=== PATIENT | male | born 1970 | race Caucasian/White ===

== ENCOUNTER 2016-10-20 20:36 | Inpatient (IN) | payer OTHER ==
--- NOTE | ~2016-10-20 | CR72 ---
[facility] A Service of [facility] RADIOLOGY TEXT RESULTS PATIENT: DIONI MANUEL LOCATION: [address] : 71 UNIT #: [id number] AGE: [address]: Bee Wood MD SEX: M ORDER DR: [id number] [facility] [address] [facility]. [place], [place] [address] [id number] I MR#: [id number] Acc #: [id number] NAME: MENDEZ PONCE : 07/04/1948 SEX: M STUDY DATE/TIME: 10/21/2016 4:55 UNIT: [facility] ROOM: [facility] STUDY DESCRIPTION: CR Chest Single View Portable Attending Physician: Anya Quintero M.D. Ordering Physician: Katia Todd M.D. Primary Care Physician: Primary Care Physician No MEDICAL IMAGING REPORT This report is preliminary unless electronic signature is present EXAM Portable chest INDICATION Follow up endotracheal tube. FINDINGS Today's portable view of the chest is compared with yesterday's study. The endotracheal tube is in good position. The lungs are clear and the heart size is normal. Dictated by... Wenceslao Paige M.D. THIS IS AN ELECTRONICALLY VERIFIED REPORT Wenceslao Paige M.D. at 10/21/2016 2:15 PM ERA/kd TD: 10/21/2016 06:22 JOB #: [id number] MEDICAL IMAGING REPORT Page 1 of 1 COPY
--- NOTE | ~2016-10-20 | EKG ---
PATIENT: MENDZE PONCE UNIT #: [id number] Ventricular Rate: 127 BPM Atrial Rate: 98 BPM QRS Duration: 104 ms Q-T Interval: 350 ms QTC Calculation(Bezet): 508 ms Calculated R [place]: 91 degrees Calculated T [place]: 26 degrees Diagnosis Line: Atrial fibrillation with rapid ventricular Diagnosis Line: response with premature ventricular or aberrantly Diagnosis Line: conducted complexes Diagnosis Line: Rightward axis Diagnosis Line: Marked ST abnormality, possible inferior Diagnosis Line: subendocardial injury Diagnosis Line: Abnormal ECG Diagnosis Line: When compared with ECG of 20-OCT-2016 16:53, Diagnosis Line: (unconfirmed) Diagnosis Line: ST now depressed in Inferior leads Diagnosis Line: ST now depressed in Lateral leads Diagnosis Line: Confirmed by JUVE RAMOS MD ([id number]) on 10/21/2016 Diagnosis Line: 5:05:43 AM INTERPRETING MD: RACHEL KOVACS
--- NOTE | ~2016-10-20 | HP ---
Unit #: [id number] #: [id number] Patient: DIONI MANUEL [id number] [address] [place], [place] [address] [id number] MR#: [id number] NAME: MENDEZ PONCE ROOM: Age: 68 Sex: M Admission Date: 10/20/2016 : 07/04/1948 Attending Physician: Yovani Horowitz M.D. Primary Care Physician: No Primary Care Physician HISTORY AND PHYSICAL CHIEF COMPLAINT Overdose. HISTORY OF PRESENT ILLNESS The patient is a -gpbk-axu male with a history of heroin abuse brought to the emergency room with the drug overdose. The patient is status post intubation. The patient was brought in by the EMS as friend called the EMS for the transfer. The patient was more dusky from the chest above and was in respiratory distress. The patient received the multiple doses of the Narcan in the emergency room with no response and the patient has been intubated for the drug overdose. No further history is available. PAST MEDICAL HISTORY Heroin abuser. PAST SURGICAL HISTORY Unavailable. ALLERGIES No known drug allergies. SOCIAL HISTORY Unable to obtain. REVIEW OF SYMPTOMS Unable to obtain. FAMILY HISTORY Unable to obtain. PHYSICAL EXAMINATION GENERAL APPEARANCE: On examination the patient is lying on a bed status post intubation and sedation. VITAL SIGNS: Temperature 97.1, pulse 45, respiratory rate 14, blood pressure 159/89, sating 100% at room air. HEENT: Head atraumatic, normocephalic. Pupils equal, round and reacting to light and accommodation. Extraocular movements are intact. Dry mucous membranes NECK: Supple. LUNGS: Decreased air entry. Coarse breath sounds. HEART: Regular rate and rhythm. ABDOMEN: Soft, positive bowel sounds. Unit #: [id number] #: [id number] Patient: DIONI MANUEL EXTREMITIES: Patient has laceration brower on the lower extremities. NEUROLOGIC: Status post sedation and intubation. DIAGNOSTIC STUDIES LABORATORY DATA: pH 7.33, pCO2 of 45, PaO2 of 334, bicarb 24.3, oxygen saturation 97.8. Glucose 134, BUN 12, creatinine 0.9, sodium 137, potassium 4.3, chloride 101, bicarb 24, calcium 8.6, magnesium 2, total protein 8.1, AST 36, ALT 25, alkaline phosphatase 140, lactic acid 1.5, acetaminophen less than 10, salicylate less than 4, alcohol less than 5, INR is 1, WBC 7.8, hemoglobin 15, hematocrit 44.9 and platelets 192, neutrophils 86.9. Urine tox is positive for cocaine and marijuana. UA shows 100 glucose. IMAGING: Chest x-ray shows lungs appear clear with no definite focal infiltrate seen. CT of the head showed no clearly acute intracranial process. No evidence of acute intracranial hemorrhage. Mild sinus disease. CARDIOVASCULAR: Patient had an EKG that showed atrial fibrillation with a rapid ventricular response with premature PVCs or aberrantly conducted complexes. ASSESSMENT 1. Acute respiratory failure. 2. Drug overdose. 3. Atrial fibrillation. PLAN 1. Plan to admit the patient to inpatient with the telemetry. 2. Critical care consult with Dr. Tello. 3. Continue sedation with the Diprivan. 4. Repeat the ABG and wean the vent per protocol. 5. I will have a Cardiology consult for the new onset afib. 6. Repeat the labs. Further recommendations will follow. Dictated by Juve Wallace TD: 10/20/2016 20:33 JOB #: [id number] Unit #: [id number] #: [id number] Patient: DOINI MANUEL HISTORY AND PHYSICAL Page 1 of 1 X X HISTORY AND PHYSICAL
--- NOTE | ~2016-10-20 | CO ---
Unit #: [id number] #: [id number] Patient: DIONI MANUEL [id number] [facility] [address] [facility]. [place], [place] [address] [id number] I MR#: [id number] NAME: MENDEZ PONCE ROOM: CICCU3 Age: 68 Sex: M Admission Date: 10/20/2016 : 07/04/1948 Attending Physician: Bee Wood M.D. Primary Care Physician: No Primary Care Physician Consultation Date: 10/21/2016 CONSULTATION REPORT REASON FOR CONSULT Atrial fibrillation. Please note, this is an alias. The patient's age and date are actually unknown. HISTORY OF PRESENT ILLNESS Apparently, the patient was found down in the middle of the street. A friend called EMS, brought him into the emergency room at [facility] for evaluation. He was noted to have received some doses of Narcan with minimal response and developed respiratory distress requiring intubation. It was believed he had a drug overdose. Urine drug tox was positive for cocaine and marijuana and according to the history, the patient has a previous history of heroin use in the past. We were asked to see due to atrial fibrillation. Initial EKG showed atrial fibrillation with RVR, rate of 127 beats per minute, rightward axis. ST abnormality could be rate related. Next, the patient spontaneously converted out of this rhythm and has been maintaining normal sinus rhythm with no further episodes of atrial fibrillation. At present, there is no family present at bedside. All information was gathered from the chart, the nursing staff, and the prior records. He is currently intubated and sedated on the ventilator. PAST MEDICAL HISTORY Unknown. PAST SURGICAL HISTORY Unknown. ALLERGIES No known drug allergies. SOCIAL HISTORY Unknown. REVIEW OF SYSTEMS Unable to obtain, patient is intubated and sedated. FAMILY HISTORY Unable to obtain. PHYSICAL EXAMINATION GENERAL APPEARANCE: This is a male who is currently intubated and sedated on the ventilator in room 18, ICU. Unit #: [id number] #: [id number] Patient: DIONI MANUEL VITAL SIGNS: Temperature currently 99.4, respiratory rate 19-20, pulse 77, blood pressure 97/56 to 113/71. HEENT: Head is atraumatic, normocephalic. Pupils are equal and round. Mucous membranes are moist. NECK: Trachea is midline. ET tube is present. No lymphadenopathy or thyromegaly. No JVD. No carotid bruits. CARDIOVASCULAR: S1, S2. Regular rate and rhythm. No murmur, gallop, or rub. LUNGS: Clear to auscultation throughout. No adventitious breath sounds. No rales. No rhonchi. No wheezes. ABDOMEN: Soft, nontender, nondistended. Bowel sounds are present. EXTREMITIES: Pulses are palpable. No clubbing, cyanosis, or edema. He has multiple tattoos noted all over his skin. NEUROLOGIC: Withdraws to pain. DIAGNOSTIC STUDIES LABORATORY: Glucose 123, BUN 11, creatinine 0.8, sodium 140, potassium 3.5, chloride 107, CO2 of 27, magnesium 2. Alkaline phosphatase 114. Troponins have been less than 0.03. Total cholesterol 154, triglycerides 92, LDL 80, HDL 56. TSH is 0.5. Alcohol level is less than 5. Coags are within normal limits. Hematology: Hemoglobin 13.9, hematocrit 42.1, WBC 9.1, platelet count 187,000. Chem tox was positive for cocaine and marijuana. Blood cultures are currently pending. IMAGING: Chest x-ray shows ET tube is present. Lungs are clear. Heart size is normal. He also had a CT of the head which showed no acute intracranial hemorrhage, mild sinus disease. Postop changes of the right mandible. He had a CT of the cervical spine which showed no acute cervical spine abnormality. No fracture. Degenerative changes were noted. CARDIOVASCULAR: Initial EKG showed atrial fibrillation with RVR, rate of 127 beats per minute, rightward axis. ST abnormality was noted, could be rate related. Currently, he is in sinus rhythm on telemetry and has maintained that all day according to the nursing staff. IMPRESSION 1. Found down in the middle of the street unresponsive. No cardiopulmonary resuscitation indicated. Found to be in acute respiratory distress, suspected drug overdose. 2. Atrial fibrillation: Transient episodes spontaneously converted to normal sinus rhythm. 3. History of heroin abuse. 4. Urine drug tox is positive for cocaine and marijuana. PLAN The patient is currently intubated and sedated on the ventilator secondary to acute respiratory distress, most likely secondary to overdose. We were consulted to see secondary to atrial fibrillation which was transient in nature. The patient spontaneously converted now to normal sinus rhythm. Will check cardiac enzymes and troponins q.6 hours and follow EKGs. Troponins should be called if greater than 0.5. Will check TSH, fasting lipid panel, and a 2D echocardiogram to look for any cardiomyopathy secondary to the patient's drug use. No further cardiac workup is indicated at this time. Unit #: [id number] #: [id number] Patient: DIONI MANUEL We will continue to follow alongside you. We appreciate the consult. Dictated by... Rosalinda Oviedo A.P.R.N. for Juve Yang/bartolo TD: 10/21/2016 15:44 JOB #: [id number] CONSULTATION REPORT Page 1 of 1 X Rosalinda Oviedo PROFESSOR OF BUSINESS X CONSULTATION REPORT
--- NOTE | ~2016-10-20 | EKG ---
PATIENT: MENDEZ PONCE UNIT #: [id number] Ventricular Rate: 88 BPM Atrial Rate: 59 BPM QRS Duration: 104 ms Q-T Interval: 388 ms QTC Calculation(Bezet): 469 ms Calculated R [place]: 86 degrees Calculated T [place]: 60 degrees Diagnosis Line: Atrial fibrillation with premature ventricular or Diagnosis Line: aberrantly conducted complexes Diagnosis Line: Abnormal ECG Diagnosis Line: No previous ECGs available Diagnosis Line: Confirmed by JUVE RAMOS MD ([id number]) on 10/21/2016 Diagnosis Line: 5:03:57 AM INTERPRETING MD: RACHEL KOVACS
--- NOTE | ~2016-10-20 | CT52 ---
[facility] A Service of [facility] RADIOLOGY TEXT RESULTS PATIENT: DIONI MANUEL LOCATION: CICCU3 CICCU318 : 72 UNIT #: [id number] AGE: [address]: Bee Wood MD SEX: M ORDER DR: [id number] [facility] [address] [facility]. [place], [place] [address] [id number] P MR#: [id number] Acc #: [id number] NAME: MENDEZ PONCE : 07/04/1948 SEX: M STUDY DATE/TIME: 10/20/2016 18:00 UNIT: [facility] ROOM: STUDY DESCRIPTION: CT Cervical Spine Wo Cont Attending Physician: Yovani Horowitz M.D. Ordering Physician: Yovani Horowitz M.D. MEDICAL IMAGING REPORT This report is preliminary unless electronic signature is present EXAM CT of the cervical spine without contrast INDICATIONS Found unresponsive today. Overdose, possible trauma. TECHNIQUE CT of the cervical spine was performed without contrast. Coronal and sagittal reformatted images were obtained. This CT exam was performed with one or more of the following radiation dose reduction techniques: automatic exposure control, adjustment of mA and/or kV according to patient size, and iterative reconstruction. COMPARISON No comparisons FINDINGS There is degenerative grade 1 retrolisthesis of C5 on C6. There is no evidence of acute fracture or traumatic subluxation. There is multilevel facet hypertrophy. There are very mild central canal narrowing at C5-C6. At C4-5 there is moderate neural foraminal narrowing on the left. There is mild to moderate neural foraminal narrowing bilaterally C5-C6. There is an endotracheal tube in place. IMPRESSION Degenerative changes as described. There is no acute cervical spine abnormality. No fracture. Dictated by... Ozzy Moss M.D. THIS IS AN ELECTRONICALLY VERIFIED REPORT Ozzy Moss M.D. at 10/21/2016 7:55 AM [facility] A Service [facility] RADIOLOGY TEXT RESULTS PATIENT: DIONI MANUEL LOCATION: CICCU3 CICCU318 : 72 UNIT #: [id number] AGE: [address]: Bee Wood MD SEX: M ORDER DR: MILLIE/patrick TD: 10/20/2016 18:55 JOB #: [id number] MEDICAL IMAGING REPORT Page 1 of 1 COPY
--- NOTE | ~2016-10-20 | CR72 ---
[facility] A Service of [facility] RADIOLOGY TEXT RESULTS PATIENT: DIONI MANUEL LOCATION: CICCU3 CICCU3-18 : 72 UNIT #: [id number] AGE: [address]: Bee Wood MD SEX: M ORDER DR: [id number] [facility] [address] [facility]. [place], [place] [address] [id number] P MR#: [id number] Acc #: [id number] NAME: MENDEZ PONCE : 07/04/1948 SEX: M STUDY DATE/TIME: 10/20/2016 16:48 UNIT: [facility] ROOM: STUDY DESCRIPTION: CR Chest Single View Portable Attending Physician: Yovani Horowitz M.D. Ordering Physician: Yovani Horowitz M.D. MEDICAL IMAGING REPORT This report is preliminary unless electronic signature is present EXAM Portable chest 10/20/2016 INDICATIONS Intubation. Patient had an overdose today and is unresponsive. FINDINGS Since the prior examination from earlier today and endotracheal tube has been placed which terminates at about the level of the thoracic inlet. The heart size is within normal limits. Lungs appear clear with no definite focal infiltrates seen. Please note both costophrenic angles are excluded from the radiograph. No obvious pneumothorax or pleural effusion is seen. Dictated by... Mary Quinteros M.D. THIS IS AN ELECTRONICALLY VERIFIED REPORT Mary Quinteros M.D. at 10/21/2016 10:36 AM ISAIAS/jessi TD: 10/20/2016 18:20 JOB #: [id number] MEDICAL IMAGING REPORT Page 1 of 1 COPY
--- NOTE | ~2016-10-20 | CT71 ---
[facility] A Service [facility] RADIOLOGY TEXT RESULTS PATIENT: DIONI MANUEL LOCATION: CICCU3 CICCU3-18 : 72 UNIT #: [id number] AGE: [address]: Bee Wood MD SEX: M ORDER DR: [id number] [facility] [address] [facility]. [place], [place] [address] [id number] P MR#: [id number] Acc #: [id number] NAME: MENDEZ PONCE : 07/04/1948 SEX: M STUDY DATE/TIME: 10/20/2016 17:39 UNIT: [facility] ROOM: STUDY DESCRIPTION: CT Head Wo Contrast Attending Physician: Yovani Horowitz M.D. Ordering Physician: Yovani Horowitz M.D. MEDICAL IMAGING REPORT This report is preliminary unless electronic signature is present EXAM Head CT no contrast 10/20/2016 INDICATIONS 68-year-old male, unresponsive, overdose, unknown trauma today. Ventilator patient. Heroin user. TECHNIQUE Noncontrast CT the brain was performed. This CT exam was performed with one or more of the following radiation dose reduction techniques: automatic exposure control, adjustment of mA and/or kV according to patient size, and iterative reconstruction. COMPARISON We have no comparison studies. FINDINGS CT BRAIN: Sulci and ventricles within normal limits. No midline shift. No evidence of acute intracranial hemorrhage. There is no mass, mass effect or edema to suggest acute infarct. No extraaxial fluid collections are present. Globes are intact. Bones are intact. There is evidence of prior surgery to the right mandible. Mild sinus disease. IMPRESSION 1. No clearly acute intracranial process. No evidence of acute intracranial hemorrhage. 2. Mild sinus disease. 3. Postop changes right mandible. Dictated by... Alvin Sutton M.D. [facility] A Service [facility] RADIOLOGY TEXT RESULTS PATIENT: DIONI MANUEL LOCATION: CICCU3 CICCU3-18 : 72 UNIT #: [id number] AGE: [address]: Bee Wood MD SEX: M ORDER DR: THIS IS AN ELECTRONICALLY VERIFIED REPORT Alvin Sutton M.D. at 10/20/2016 7:56 PM Apol[place] TD: 10/20/2016 19:08 JOB #: [id number] MEDICAL IMAGING REPORT Page 1 of 1 COPY
--- NOTE | ~2016-10-20 | CO ---
Unit #: [id number] #: [id number] Patient: DIONI MANUEL [id number] [address] [place], [place] [address] [id number] I MR#: [id number] NAME: MENDEZ PONCE ROOM: [facility] Age: 68 Sex: M Admission Date: 10/20/2016 : 07/04/1948 Attending Physician: Bee Wood M.D. Primary Care Physician: No Primary Care Physician CONSULTATION REPORT CHIEF COMPLAINT Drug overdose. REASON FOR CONSULTATION Respiratory failure. HISTORY OF PRESENT ILLNESS This is a 68-year-old male with a past medical history of drug abuse. He presents with complaint of altered mental status. He was found to be in respiratory failure. He received multiple doses of Narcan. He did not respond. He was intubated by the emergency room physician. I am seeing him at the bedside. Currently he is intubated and sedated. PAST MEDICAL HISTORY Heroin abuse. PAST SURGICAL HISTORY Unobtainable. SOCIAL HISTORY Drug use from the records. ALLERGIES No known drug allergies. REVIEW OF SYSTEMS Unobtainable. PHYSICAL EXAMINATION VITALS: Temperature 98, pulse 87, respiratory rate 12, blood pressure 130/70. LUNGS: Bilateral air entry. Bilateral mild rhonchi. HEART: S1 plus S2. ABDOMEN: Nontender, soft, bowel sounds positive. EXTREMITIES: No edema. SKIN: No rashes. No ulcers. LYMPH: No lymphadenopathy. NEUROLOGIC: Sedated. DIAGNOSTIC STUDIES IMAGING: Reviewed. LABORATORY: Have been reviewed. Unit #: [id number] #: [id number] Patient: DIONI MANUEL ASSESSMENT 1. Acute respiratory failure. 2. Drug overdose. 3. Atrial fibrillation. PLAN Continue ventilator support. Wean as tolerated. GI and DVT prophylaxis. Cardiology evaluation. Two-dimensional echo. The patient will be closely monitored. Please see orders for detailed plan. I would like to thank you for your kind consideration to involve me in taking care of this patient. Total critical care time is 35 minutes in direct critical care of this patient. Dictated by... Juve Garcia TD: 10/21/2016 11:07 JOB #: [id number] CONSULTATION REPORT Page 1 of 1 X Dell Tello MD CONSULTATION REPORT
[2016-10-20 17:16] LABS: URINE APPEARANCE CLEAR; URINE BILIRUBIN NEG (NEG); URINE BLOOD TRACE (NEG); URINE COLOR YELLOW; URINE GLUCOSE 100 MG/DL (NEG); URINE KETONE 1+ (NEG); URINE LEUKOCYTE ESTERASE NEG (NEG); URINE NITRATE NEG (NEG); URINE PROTEIN NEG (NEG); URINE SPECIFIC GRAVITY 1.009 (1.003-1.035); URINE UROBILINOGEN 0.2 MG/DL (NEG)
[2016-10-20 17:18] LABS: URBCS1 AUWI 0-2 /[HPF] (0-2); URINE BACTERIA AUWI NEG (NEGATIVE); URINE SQUAMOUS EPITHELIAL CELL NONE SEEN /[HPF]; UWBCS1 AUWI 0-2 (0-5)
[2016-10-20 17:23] LABS: CULTURE INDICATED? NO
[2016-10-20 17:24] LABS: BASOPHIL% 0.5 % (0-2.5); EOSINOPHIL% 0.1 % (0.0-7.0); HEMATOCRIT 44.9 % (38.0-50.0); LYMPHOCYTE# 0.6 X10e3 (1.0-3.5); LYMPHOCYTE% 7.7 % (17.0-45.0); MEAN CELL VOLUME 102.3 FL (83-96); MEAN CORPUSCULAR HEMOGLOBIN 34.2 PG (28-34); MEAN CORPUSCULAR HGB CONC 33.4 g/dL (30-36); MEAN PLATELET VOLUME 7.4 FL (6.5-11.5); MONOCYTE# 0.4 X10e3 (0-1.0); MONOCYTE% 4.8 % (3.0-12.0); NEUTROPHIL# 6.8 X10e3 (1.5-7.1); NEUTROPHIL% 86.9 % (40-75); PLATELET COUNT 192 X10e3 (140-420); RED BLOOD COUNT 4.39 X10e (3.90-5.60); WHITE BLOOD COUNT 7.8 X10e3 (4.0-10.5)
[2016-10-20 17:25] LABS: ARTERIAL BLD GAS O2 SATURATION 97.8 % (90.0-100.0); ARTERIAL BLOOD GAS CARBOXY HB 1.7 %sat (0.0-9.0); ARTERIAL BLOOD GAS HCO3 24.3 mmol/L; ARTERIAL BLOOD GAS MET HB 0.6 %sat (0.0-2.0); ARTERIAL BLOOD GAS PCO2 45.7 mmHg (35.0-45.0); ARTERIAL BLOOD GAS pH 7.333 (7.350-7.450)
[2016-10-20 17:26] LABS: AMPHETAMINE NEG (NEG); BARBITURATES NEG (NEG); BENZODIAZEPINES NEG (NEG); COCAINE POS (NEG); MARIJUANA POS (NEG); OPIATES NEG (NEG); TRICYCLIC ANTIDEPRESSANTS NEG (NEG); U METHADONE NEG (NEG)
[2016-10-20 17:26] LABS: ARTERIAL BLOOD GAS ALLEN TEST NORMAL; ARTERIAL BLOOD GAS ART SITE LEFT RADIAL; ARTERIAL BLOOD GAS DELIVERY VENT; ARTERIAL BLOOD GAS VENT MODE AC; ARTERIAL DRAW? YES
[2016-10-20 17:28] LABS: DIFF IND NO
[2016-10-20 17:39] LABS: PARTIAL THROMBOPLASTIN TIME 23.8 SECONDS (23.5-31.3); PROTHROMBIN TIME (PATIENT) 10.2 SECONDS (9.6-11.5)
[2016-10-20 18:00] LABS: ALBUMIN SERUM 4.2 g/dL (3.5-5.0); ALKALINE PHOSPHATASE 114 U/L (32-92); ALT (SGPT) 25 U/L (10-40); AST (SGOT) 36 U/L (10-42); BILIRUBIN, DIRECT 0.1 mg/dL (0.0-0.2); BILIRUBIN,INDIRECT 0.4 mg/dL (0.0-0.9); BILIRUBIN,TOTAL 0.5 mg/dL (0.2-2.0); BLOOD UREA NITROGEN 12 mg/dL (9-23); BUN/CREATININE RATIO 13.33; CALCIUM SERUM 8.6 mg/dL (8.4-10.2); CARBON DIOXIDE 24 mmol/L (22-31); CHLORIDE 101 mmol/L (100-111); CREATININE SERUM 0.9 mg/dL (0.6-1.4); GLOM FILT RATE Estimated 88.1 mL/min (>60); GLUCOSE FASTING 134 mg/dL (70-110); POTASSIUM 4.3 mmol/L (3.5-5.1); PROTEIN TOTAL SERUM 8.1 g/dL (6.0-8.3); SALICYLATE <4.0 mg/dL; SODIUM 137 mmol/L (135-145)
[2016-10-20 18:03] LABS: ACETAMINOPHEN <10 ug/mL; ALCOHOL BLOOD <5 mg/dL (0)
[2016-10-20 20:16] LABS: ARTERIAL BLD GAS O2 SATURATION 96.8 % (90.0-100.0); ARTERIAL BLOOD GAS CARBOXY HB 1.2 %sat (0.0-9.0); ARTERIAL BLOOD GAS MET HB 0.9 %sat (0.0-2.0); ARTERIAL BLOOD GAS PCO2 46.6 mmHg (35.0-45.0); ARTERIAL BLOOD GAS pH 7.354 (7.350-7.450)
[2016-10-20 20:17] LABS: ARTERIAL BLOOD GAS ALLEN TEST NORMAL; ARTERIAL BLOOD GAS ART SITE RIGHT RADIAL; ARTERIAL BLOOD GAS DELIVERY VENT; ARTERIAL BLOOD GAS VENT MODE AC; ARTERIAL DRAW? YES
[~2016-10-20 20:36] MED LIST: NO MEDICATIONS
[2016-10-21 04:37] LABS: ARTERIAL BLD GAS O2 SATURATION 99.8 % (90.0-100.0); ARTERIAL BLOOD GAS ALLEN TEST NORMAL; ARTERIAL BLOOD GAS ART SITE LEFT RADIAL; ARTERIAL BLOOD GAS CARBOXY HB 0.4 %sat (0.0-9.0); ARTERIAL BLOOD GAS DELIVERY VENT; ARTERIAL BLOOD GAS HCO3 28.3 mmol/L; ARTERIAL BLOOD GAS MET HB 0.6 %sat (0.0-2.0); ARTERIAL BLOOD GAS PCO2 46.3 mmHg (35.0-45.0); ARTERIAL BLOOD GAS VENT MODE AC; ARTERIAL BLOOD GAS pH 7.395 (7.350-7.450); ARTERIAL DRAW? YES
[2016-10-21 06:03] LABS: BASOPHIL% 0.3 % (0-2.5); EOSINOPHIL% 0.1 % (0.0-7.0); HEMATOCRIT 42.1 % (38.0-50.0); HEMOGLOBIN 13.9 gm/dL (13.0-16.0); LYMPHOCYTE# 1.1 X10e3 (1.0-3.5); LYMPHOCYTE% 11.8 % (17.0-45.0); MEAN CELL VOLUME 103.5 FL (83-96); MEAN CORPUSCULAR HEMOGLOBIN 34.2 PG (28-34); MEAN CORPUSCULAR HGB CONC 33.1 g/dL (30-36); MEAN PLATELET VOLUME 8.1 FL (6.5-11.5); MONOCYTE# 0.7 X10e3 (0-1.0); MONOCYTE% 7.2 % (3.0-12.0); NEUTROPHIL# 7.4 X10e3 (1.5-7.1); NEUTROPHIL% 80.6 % (40-75); PLATELET COUNT 187 X10e3 (140-420); RED BLOOD COUNT 4.06 X10e (3.90-5.60); WHITE BLOOD COUNT 9.1 X10e3 (4.0-10.5)
[2016-10-21 06:12] LABS: DIFF IND NO
[2016-10-21 06:53] LABS: BUN/CREATININE RATIO 13.75; CALCIUM SERUM 8.7 mg/dL (8.4-10.2); CREATININE SERUM 0.8 mg/dL (0.6-1.4); GLOM FILT RATE Estimated 92.5 mL/min (>60); POTASSIUM 3.5 mmol/L (3.5-5.1)
[2016-10-21 12:01] LABS: CHOLESTEROL 154 mg/dL (0-200); HDL CHOLESTEROL 56 mg/dL (29-75); LDL CHOLESTEROL 80 mg/dL (-130); LDL/HDL RATIO 1 RATIO (0-4); TRIGLYCERIDES 92 mg/dL (10-160)
== END 2016-10-21 13:30 | disposition left against medical advice (07) | DRG 917 ==
LOC: CED 20:36 → CEDOF 20:37 → CICCU3 10-21 01:50
PROVIDERS: Emergency Medicine; Internal Medicine; Internal Medicine Cardiovascular Disease
PROC: 0BH17EZ Insertion of Endotracheal Airway into Trachea, Via Natural or Artificial Opening (ICD-10-PCS; principal; 2016-10-20)
PROC: 5A1935Z Respiratory Ventilation, Less than 24 Consecutive Hours (ICD-10-PCS; 2016-10-20)
DX: T40.5X1A Poisoning by cocaine, accidental (unintentional), initial encounter (principal); J96.01 Acute respiratory failure with hypoxia; J96.02 Acute respiratory failure with hypercapnia; I48.91 Unspecified atrial fibrillation; D75.89 Other specified diseases of blood and blood-forming organs
CPT/HCPCS: 31500; 36415; 36600; 51702; 70450; 71010; 72125; 80048; 80061; 80076; 80307; 81003; 82550; 82553; 82607; 82746; 82803; 82947; 83605; 83735; 84443; 84484; 85025; 85610; 85730; 87040; 93005; 93306; 94002; 94760; 96365; 96366; 96375; 99285; C9113; G0480; J0330; J1650; J2250; J2310; J2405

== ENCOUNTER 2016-12-06 12:57 | Emergency (ER) | payer OTHER | END 2016-12-06 14:05 | disposition home or self-care (01) | LOC: CFTX 12:57 → CED 12:57 → CFTX 13:59 | DX: H10.023 Other mucopurulent conjunctivitis, bilateral (principal); H00.014 Hordeolum externum left upper eyelid; H00.011 Hordeolum externum right upper eyelid; L72.8 Other follicular cysts of the skin and subcutaneous tissue; F17.210 Nicotine dependence, cigarettes, uncomplicated | CPT/HCPCS: 99283 ==